=== PATIENT | male | born 1995 | race Caucasian/White ===

== ENCOUNTER 2019-03-05 10:30 | Day surgery (SDC) | payer BC ==
[~2019-03-05] VITALS: Ht 185.4 cm; Wt 72.5 kg
[2019-03-05 11:24] VITALS: BP 128/67; PULSE 58; TEMP 98.5
[2019-03-05] MEDS ORDERED: NORCO 325 MG-51 TAB PO (14:50)
[2019-03-05] MEDS ORDERED: MOTRIN 600600 MG/TAB PO (14:51)
[2019-03-05] MEDS ORDERED: COLACE 100100 MG/CAP PO (14:51)
[2019-03-05 15:15] VITALS: BP 117/70; PULSE 94; TEMP 98.4
--- NOTE | 2019-03-05 15:15 | NUR ---
Pt to [facility] via cart from PACU. Pt drowsy, but awake. Pt states "I have some discomfort where my hernia is, but not pain." Incisions x3 to abdomen are clean, and dry and secured with leong set. Pt takes sips of water without difficulties. Family in room. Will continue to monitor. Call light within reach.
[2019-03-05 15:30] VITALS: BP 123/71; PULSE 84
--- NOTE | 2019-03-05 15:30 | NUR ---
Pt continues to rest. Taking sips of water without difficulties.
[2019-03-05 15:45] VITALS: BP 119/72; PULSE 82
--- NOTE | 2019-03-05 15:45 | NUR ---
Pt continues to rest. Family at side. Pt rates pain 4/10 to abdomen. Pt c/o "slight" nausea. Will continue to monitor.
[2019-03-05 16:00] VITALS: BP 121/77; PULSE 81
--- NOTE | 2019-03-05 16:00 | NUR ---
Pt continues to rest. Jello and crackers provided. Will continue to monitor.
--- NOTE | 2019-03-05 16:24 | NUR ---
Coy 5mg 1 tablet po given per prn orders for pain. Pt tolerating Jello and crackers without difficulties.
[2019-03-05 16:30] VITALS: BP 121/74; PULSE 93
--- NOTE | 2019-03-05 16:30 | NUR ---
Pt continues to rest. Tolerating food and fluids without difficulties. Will continue to monitor. Call light within reach.
--- NOTE | 2019-03-05 17:00 | NUR ---
Pt up to restroom with stand by assistance. Gait steady. Pt voids large amount without difficulties. Pt back to room. IV site discontinued with all parts intact. Pt became diaphoretic, pale and nauseated once IV was taken out. Pt assisted to laying back down. Placed in trendelenburg, and cool washcloth placed on forehead. Nurse to remain at bedside.
--- NOTE | 2019-03-05 17:20 | NUR ---
Pt feeling better. No longer pale, diaphoretic or nauseated. Pt tolerating HOB up 60 degrees. Will continue to monitor. Discharge instructions reviewed with pt and family. Call light within reach.
--- NOTE | 2019-03-05 17:30 | NUR ---
Pt able to sit up at side of bed without difficulties. Pt assisted with dressing by his girlfriend.
--- NOTE | 2019-03-05 17:48 | NUR ---
Pt escorted to private car via wheel chair. Pt accompanied home by his mother.
== END 2019-03-05 17:50 | disposition home or self-care (01) ==
LOC: SDCO 10:30
DX: K40.90 Unilateral inguinal hernia, without obstruction or gangrene, not specified as recurrent (principal)
CPT/HCPCS: C1781; J0690; J1100; J1885; J2250; J2405; J2704; J3010; J7120